=== PATIENT | male | born 1965 | race Two or more races ===

== ENCOUNTER 2024-06-08 10:20 | Day surgery (SDC) | payer MEDICAID, SELFPAY ==
--- NOTE | 2024-06-07 09:39 | EKG_ITS ---
[facility] Test Date: 2024-06-07 Pat Name: АННА FAM Department: Room: - Gender: Male Client Care Manager: SOL : 1965 Requested By: Aaron Moreno Order Number: [id number] Reading MD: Aaron Moreno Measurements Intervals [place] Rate: 76 P: 53 FL: 144 QRS: -60 QRSD: 106 T: 34 QT: 362 QTc: 409 Interpretive Statements SINUS RHYTHM LEFT ANTERIOR FASCICULAR BLOCK MODERATE T-WAVE ABNORMALITY, CONSIDER LATERAL ISCHEMIA No previous ECG available for comparison /[id number]/[email or web address]/[id number]
[2024-06-07 09:41] VITALS: BMI 28.8
[2024-06-07 10:50] LABS: Basophils # (Auto) 0.1 Thou/mm3 (0.0-0.2); Basophils % (Auto) 0 % (0-2.5); Eosinophils # (Auto) 0.4 Thou/mm3 (0.0-0.5); Eosinophils % (Auto) 3 % (0-10); Hematocrit 45.7 % (41.0-53.0); Hemoglobin 14.8 g/dL (13.5-16.0); Immature Granulocytes % (Auto) 0 % (0-0); Immature Granulocytes Auto 0.06 Thou/mm3 (0.00-0.00); Lymphocytes # (Auto) 3.4 Thou/mm3 (1.0-4.8); Lymphocytes % (Auto) 26 % (10-50); Mean Corpuscular HGB Conc 32.4 g/dl (31.0-37.0); Mean Corpuscular Hemoglobin 29.1 pg (25.0-35.0); Mean Corpuscular Volume 90 fL (80-100); Monocytes % (Auto) 8 % (0-12); Neutrophils # (Auto) 8.4 Thou/mm3 (1.8-7.7); Neutrophils % (Auto) 63 % (37-80); Nucleated Red Blood Cell % 0 /100 WBC (0); Platelet Count 413 Thou/mm3 (140-440); RDW Standard Deviation 45.4 fL (35.1-43.9); Red Blood Count 5.09 Miln/mm3 (4.50-5.90); White Blood Count 13.4 Thou/mm3 (3.8-10.6)
[2024-06-07 11:01] LABS: Anion Gap 7 (7-16); BUN/Creatinine Ratio 14 Ratio (12-20); Blood Urea Nitrogen 13 mg/dL (9-23); Calcium 9.6 mg/dL (8.3-10.6); Carbon Dioxide 27.1 mMol/L (20.0-31.0); Chloride 106 mMol/L (98-107); Creatinine (Component) 0.9 mg/dL (0.6-1.3); Estimated Creatinine Clearance 95.4 mL/min (>60); Glucose 117 mg/dL (74-106); Osmolality,Calculated 280 (275-295); Sodium 140 mMol/L (136-145); eGFR > 60 See Note
--- NOTE | 2024-06-07 11:40 | SUR.PREOP ---
WBC 13.4, Dr Moreno notified and ok to proceed with surgery.
[2024-06-08] VITALS (9 sets, daily range): BP systolic 142–167; BP diastolic 94–104; PULSE 71–80; RESP 16–20; TEMP 36.4–36.6; O2SAT 94–99; BMI 28.2
[2024-06-08] MEDS: RINGERS LACTATED 1000 ML 1,000 ML 20 ML IV (11:14)
--- NOTE | 2024-06-08 13:25 | PD.SUROPNT ---
Date of Procedure 06/08/24 Pre Op Diagnosis Incarcerated umbilical hernia Post Op Diagnosis Incarcerated umbilical hernia Procedure Laparoscopic assisted repair of incarcerated umbilical hernia with mesh Findings Approximately 3.5 cm umbilical hernia defect with incarcerated omentum Procedure Description Patient brought into the operating room in supine position. After administration of general orotracheal anesthesia, patient's abdomen prepped and draped in standard surgical manner. A 5 mm incision was made in left upper quadrant and Veress needle was inserted, pneumoperitoneum was obtained to 15 mmHg. The Veress needle was removed and a 5 mm trocar was placed. Laparoscopic camera was inserted, under direct visualization a laparoscopic camera a 5 mm trocar placed in left lower quadrant and additional 5 mm trocar placed in right lower quadrant. The abdomen was inspected and patient was noted to have an incarcerated umbilical hernia with omentum being incarcerated within the hernia sac. The hernia sac was excised with Harmonic scalpel laparoscopically and the omentum was reduced. At this point approximately 3 cm semicircular incision was made superior to the umbilicus and dissection was carried to subcutaneous tissue. The hernia sac was circumferentially dissected off surrounding tissue and excised from surrounding abdominal fascia. The fascia was cleared from overlying tissue. The defect was approximately 3.5 cm in diameter. A 4 x 6 elliptical shape proceed mesh was used to cover the defect. 2 tacking sutures using 0 Ethibond placed the 2 ends of the mesh and the mesh was placed inside the abdominal cavity through the hernia defect. The defect was closed with interrupted sutures using 0 Ethibond. The umbilicus was tacked into the underlying abdominal fascia was 2-0 Vicryl suture in subcutaneous tissue closed with interrupted sutures of 2-0 Vicryl. The abdomen was once again insufflated. 2 tacking sutures of the 2 ends of the mesh were retrieved through the previously marked abdominal wall site. Sutures were tightened and the mesh was further secured into anterior abdominal wall with secure strap tacking device. The mesh was covering the defect with at least 4 cm circumferential margin. Hemostasis was adequate and satisfactory. Instruments and trocars removed, pneumoperitoneum was evacuated and the incisions closed 4-0 Monocryl subcuticular fashion. Instruments, needles and sponge counts were reported to be correct ?2 patient tolerated the procedure well. Patient was extubated, breathing spontaneously and without difficulty and was transferred to postanesthesia care in stable condition. Anesthesia GETA and local Pathology / specimen Other (Hernia sac) Estimated Blood Loss 5 Condition Stable Disposition PACU Surgeon Aaron Moreno MD Surgical Staff Operation Date: 06/08/24 14:30 Case Staff Anesthesiologist: Shane Soni RN First Assistant: Traci Moreno
--- NOTE | 2024-06-08 13:30 | SUR.PHASEI ---
pt arrived to PACU via gurney with oral airway present, breathing unlabored, dressing to abdomen clean, dry, and intact, abdomen distended on the right and left side near ports-anesthesia aware, will report to MD, report from Chris SHARPE and Dr Soni
--- NOTE | 2024-06-08 14:00 | SUR.PHASEII ---
Dr Moreno at bedside to assess abdominal distention, no new orders-ok to continue with discharge home per Dr Moreno.
[2024-06-08] MEDS: fentaNYL CIT INJ 50 mCg/ML AMP 2ML 25 MCG IV ×2 (14:06→14:23)
--- NOTE | 2024-06-08 14:53 | SUR.PHASEII ---
pt awake, alert, able to follow commands, breathing unlabored, dressing to abdomen clean, dry, and intact, abdomen distended on the right and left near ports (same as upon arrival to recovery) Dr Moreno aware and okay to discharge pt home, discharge instructions given with family present using telephone pediatric genetic counselor Gamaliel ID#[id number] questions answered, pt discharged via wheelchair with all belongings and copies of discharge paperwork.
== END 2024-06-08 14:55 | disposition home or self-care (01) ==
PROVIDERS: PCP Family Medicine; Referring Provider Surgery; Visit Provider Surgery
PROC: 0WQF4ZZ Repair Abdominal Wall, Percutaneous Endoscopic Approach (ICD-10-PCS; CPT 49594; principal; 2024-06-08 14:15)
DX: K42.0 Umbilical hernia with obstruction, without gangrene (principal); Z01.810 Encounter for preprocedural cardiovascular examination
CPT/HCPCS: 49594; 36415; 80048; 85025; 93005; A4217; A4649; C1781; J0690; J1100; J1885; J2250; J2405; J2704; J3010; J3490; J7120; A9270